=== PATIENT | female | born 1980 | race Caucasian/White ===

== ENCOUNTER 2023-10-31 07:54 | Inpatient (IN) | payer BC, OTHER ==
[~2023-10-31] VITALS: Ht 167.6 cm; Wt 203.0 kg
[2023-10-31 09:00] VITALS: PULSE 97; RESP 16; O2SAT 94
[2023-10-31] MEDS: KETOROLAC TROMETH 30 MG/ML 1ML VIAL IV ONE (09:13)
[2023-10-31] MEDS: SODIUM CHLORIDE 0.9% 1,000 ML IV ONE (09:13)
[2023-10-31] MEDS: ONDANSETRON HCL 4 MG/2 ML VIAL IV ONE (09:13)
[2023-10-31 09:31] LABS: Basophils # (auto) 0.1 10 ^3/uL (0-0.2); Basophils % (auto) 0.8 % (0.0-2.0); Eosinophils # (auto) 0.1 10 ^3/uL (0-0.8); Hematocrit 44.4 % (36.0-46.0); Hemoglobin 14.7 g/dL (12.2-16.2); Lymphocytes # (auto) 2.5 10 ^3/uL (0.4-5.4); Lymphocytes % (auto) 22.5 % (10.0-50.0); Mean Corpuscular Hemoglobin 30.5 pg (28.0-32.0); Mean Corpuscular Hgb Conc. 33.1 g/dL (32.0-36.0); Mean Corpuscular Volume 92.1 fL (80.0-100.0); Monocytes # (auto) 0.6 10 ^3/uL (0-1.3); Monocytes % (auto) 5.7 % (0.0-12.0); Neutrophils # (auto) 7.7 10 ^3/uL (1.6-8.6); Nucleated Red Blood Cells % 0.1 %; Red Blood Cells 4.82 10^6/uL (4.0-5.20); Red Cell Distribution Width 15.5 % (11.8-14.3)
[2023-10-31] MEDS: traMADol HCL 50 MG TAB PO ONE ×2 (10:01→23:01)
[2023-10-31 10:22] LABS: Lactic Acid w/Reflex 6.2 mmol/L (0.4-2.0)
[2023-10-31 11:06] LABS: INR 1.09 (0.9-1.15); Partial Thromboplastin Time 28.1 SEC (24.5-34.5); Prothrombin Time 11.5 sec (9.3-11.8)
[2023-10-31] MEDS: SODIUM CHLORIDE 0.9% 1,800 ML IV ONE (11:14)
[2023-10-31 11:30] LABS: Alanine Aminotransferase 48 U/L (7-40); Albumin 4.1 g/dL (3.2-4.8); Alkaline Phosphatase 88 U/L (46-116); Anion Gap 17 (5-15); Aspartate Aminotransferase 65 U/L (13-40); BUN/Creatinine Ratio 14.5 (10.0-20.0); Bilirubin, Total 0.9 mg/dL (0.2-1.0); Blood Urea Nitrogen 25 mg/dL (9-23); Calcium 9.5 mg/dL (8.7-10.4); Carbon Dioxide 19 mmol/L (20-30); Chloride 96 mmol/L (98-107); Glucose 247 mg/dL (74-106); Potassium 3.9 mmol/L (3.5-5.1); Sodium 132 mmol/L (136-145); Total Protein 7.7 g/dL (5.7-8.2)
[2023-10-31] MEDS: cefTRIAXone 1GM/50ML D5W 50 ML IV ONE (13:43)
[2023-10-31] MEDS ORDERED: NITROGLYCERIN 0.4 MG SL TAB SL PRN (13:45)
[2023-10-31] MEDS ORDERED: MORPHINE SULFATE INJ 2 MG/ml SYRG IV PRN (13:45)
[2023-10-31] MEDS: ENOXAPARIN SOD 40 MG/0.4 ML SYRINGE SC SCH (13:45)
[2023-10-31] MEDS ORDERED: DEXTROSE (50%) 50ML SYRG IV PRN ×2 (13:45→16:45)
[2023-10-31] MEDS ORDERED: ONDANSETRON HCL 4 MG/2 ML VIAL IV PRN (13:45)
[2023-10-31] MEDS: PIPERACILLIN-TAZOB 3.375GM 100 ML IV ONE (14:00)
[2023-10-31 15:01] LABS: Urine Blood 2+ /uL (Negative); Urine Clarity Turbid (Clear); Urine Color Yellow (Yellow); Urine Hyaline Cast FEW /lpf (0 - 2); Urine Mucus FEW (None Seen); Urine Protein, UAD 1+ (Negative); Urine Specific Gravity 1.021 (1.001-1.035); Urine Urobilinogen 2 mg/dL (Negative); Urine WBC 10 /hpf (0 - 5)
[2023-10-31 15:24] LABS: Creatinine, Urine 316.24 mg/dL (30.0-125.0)
[2023-10-31 15:55] VITALS: PULSE 89; RESP 19; O2SAT 94
[2023-10-31] MEDS ORDERED: LISI40TA16 PO (16:25)
[2023-10-31] MEDS ORDERED: HYDR25TA5 PO (16:25)
[2023-10-31] MEDS ORDERED: POTA-228 PO (16:26)
[2023-10-31] MEDS ORDERED: InsuLIN REG 1unit/0.01ml Soln (100units/ml) SC SCH (17:00)
[2023-10-31] MEDS: ACCU-CHEK COMFORT CURVE STRIP VI SCH ×2 (17:00→17:47)
[2023-10-31 17:13] VITALS: BP 148/96; PULSE 89; RESP 19; TEMP 98.4; O2SAT 94
[2023-10-31] MEDS: SODIUM CHLORIDE 0.9% 1,000 ML IV SCH (17:46)
[2023-10-31] MEDS: PIPERACILLIN-TAZOB 3.375GM 100 ML IV SCH (17:47)
[2023-10-31] MEDS: InsuLIN REG 1unit/0.01ml Soln (100units/ml) SC SCH ×2 (17:56→21:16)
[2023-10-31 20:00] VITALS: O2SAT 98
[2023-10-31 21:00] VITALS: BP 114/62; PULSE 86; RESP 19; TEMP 98; O2SAT 94
[2023-11-01] VITALS (7 sets, daily range): BP systolic 103–164; BP diastolic 69–94; PULSE 85–100; RESP 16–20; TEMP 97.8–98.8; O2SAT 90–98
[2023-11-01 05:55] LABS: Basophils # (auto) 0.1 10 ^3/uL (0-0.2); Eosinophils # (auto) 0.2 10 ^3/uL (0-0.8); Eosinophils % (auto) 2.6 % (0.0-7.0); Hematocrit 36.8 % (36.0-46.0); Hemoglobin 12.5 g/dL (12.2-16.2); Lymphocytes # (auto) 1.8 10 ^3/uL (0.4-5.4); Lymphocytes % (auto) 27.4 % (10.0-50.0); Mean Corpuscular Hgb Conc. 33.9 g/dL (32.0-36.0); Mean Corpuscular Volume 91.5 fL (80.0-100.0); Monocytes # (auto) 0.5 10 ^3/uL (0-1.3); Monocytes % (auto) 7.1 % (0.0-12.0); Neutrophils # (auto) 4.1 10 ^3/uL (1.6-8.6); Neutrophils % (auto) 61.9 % (37.0-80.0); Nucleated Red Blood Cells % 0.1 %; Red Blood Cells 4.02 10^6/uL (4.0-5.20); Red Cell Distribution Width 15.3 % (11.8-14.3); White Blood Cell 6.6 10^3/uL (4.4-10.8)
[2023-11-01 06:12] LABS: Alanine Aminotransferase 36 U/L (7-40); Albumin 3.3 g/dL (3.2-4.8); Alkaline Phosphatase 69 U/L (46-116); Anion Gap 7 (5-15); Aspartate Aminotransferase 52 U/L (13-40); BUN/Creatinine Ratio 14.5 (10.0-20.0); Bilirubin, Total 0.8 mg/dL (0.2-1.0); Blood Urea Nitrogen 19 mg/dL (9-23); Calcium 8.8 mg/dL (8.7-10.4); Carbon Dioxide 27 mmol/L (20-30); Chloride 102 mmol/L (98-107); Glucose 166 mg/dL (74-106); Potassium 3.7 mmol/L (3.5-5.1); Sodium 136 mmol/L (136-145); Total Protein 6.1 g/dL (5.7-8.2)
[2023-11-01] MEDS: DOCUSATE SOD 100 MG CAP PO PRN (06:36)
[2023-11-01] MEDS: traMADol HCL 50 MG TAB PO PRN (12:56)
[2023-11-01] MEDS ORDERED: SEMA0.25 SC (17:29)
[2023-11-01] MEDS ORDERED: MUPI2OIN2 TOP (17:29)
[2023-11-01] MEDS: PIPERACILLIN-TAZOB 3.375GM 100 ML IV SCH (18:02)
[2023-11-02 00:32] VITALS: BP 127/68; PULSE 83; RESP 20; TEMP 98.1; O2SAT 91
[2023-11-02 04:48] VITALS: BP 142/82; PULSE 89; RESP 20; TEMP 98.1; O2SAT 90
[2023-11-02 07:07] LABS: Anion Gap 7 (5-15); Carbon Dioxide 28 mmol/L (20-30); Chloride 101 mmol/L (98-107); Potassium 3.8 mmol/L (3.5-5.1); Sodium 136 mmol/L (136-145)
[2023-11-02 07:09] LABS: Calcium 8.6 mg/dL (8.7-10.4)
[2023-11-02 07:13] LABS: BUN/Creatinine Ratio 11.6 (10.0-20.0); Blood Urea Nitrogen 13 mg/dL (9-23); Glucose 183 mg/dL (74-106)
[2023-11-02 08:00] VITALS: O2SAT 98
[2023-11-02 08:40] VITALS: BP 154/87; PULSE 83; RESP 16; TEMP 97.9; O2SAT 95
[2023-11-02] MEDS ORDERED: CIPR-173 PO (10:23)
[2023-11-02 12:45] VITALS: BP 154/85; PULSE 87; RESP 14; TEMP 98.2; O2SAT 97
== END 2023-11-02 18:02 | disposition home or self-care (01) | DRG 871 ==
LOC: ER 07:54 → OVERFLOW 13:52 → WEST WING 15:43
PROVIDERS: ADMIT Internal Medicine Geriatric Medicine; ATTEND Internal Medicine Geriatric Medicine
DX: A41.9 Sepsis, unspecified organism (principal); N17.0 Acute kidney failure with tubular necrosis; E87.1 Hypo-osmolality and hyponatremia; L03.116 Cellulitis of left lower limb; L03.115 Cellulitis of right lower limb; N13.6 Pyonephrosis; Z68.45 Body mass index [BMI] 70 or greater, adult; L40.50 Arthropathic psoriasis, unspecified; R74.01 Elevation of levels of liver transaminase levels; E66.01 Morbid (severe) obesity due to excess calories; I10 Essential (primary) hypertension; E55.9 Vitamin D deficiency, unspecified; Z88.5 Allergy status to narcotic agent; Z98.1 Arthrodesis status; Z80.0 Family history of malignant neoplasm of digestive organs; Z83.3 Family history of diabetes mellitus
CPT/HCPCS: 36415; 71045; 74176; 80048; 80053; 81001; 82306; 82570; 82607; 82962; 83036; 83605; 84300; 84443; 84702; 85025; 85610; 85730; 87040; 87086; 93970; 96365; G0378; J1815; J1885; J2405; J2543